=== PATIENT | female | born 1940 | race Asian ===

== ENCOUNTER 2017-12-03 14:00 | Inpatient (IN) | payer MEDICAID, MEDICARE ==
[~2017-12-03] VITALS: Ht 157.5 cm; Wt 64.4 kg
[2017-12-03 14:15] VITALS: Ht 157.5 cm; Wt 64.4 kg
[2017-12-03 15:37] LABS: BASOPHIL % 0.3 % (0-2); PLATELET COUNT 257 x10^3mcL (130-400); RED CELL DISTRIBUTION WIDTH 14.2 % (11.5-14.5)
[2017-12-03 15:49] LABS: ALBUMIN 3.6 g/dL (3.4-5.0); ALKALINE PHOSPHATASE 120 U/L (46-116); ALT/SGPT 22 U/L (14-59); AST/SGOT 19 U/L (15-37); BILIRUBIN TOTAL 0.5 mg/dL (0.20-1.00); CALCIUM 9.5 mg/dL (8.5-10.1); CREATININE SERUM 1.2 mg/dL (0.6-1.0); GLUCOSE SERUM 136 mg/dL (74-106)
[2017-12-03 15:52] LABS: CHOLESTEROL 131 mg/dL (<200); HDL CHOLESTEROL 64 mg/dL (40-60)
[2017-12-03] MEDS ORDERED: LEVEMIR100 U/M1 SC (15:59)
[2017-12-03] MEDS ORDERED: MASON NATURAL1000 IU PO (15:59)
[2017-12-03] MEDS ORDERED: NOVOLOG100 U/ML SC (15:59)
[2017-12-03] MEDS ORDERED: TRULICITY0.75 MG/0. (15:59)
[2017-12-03] MEDS ORDERED: CALCITRIOL0.25 MCG PO (16:00)
[2017-12-03] MEDS ORDERED: CARVEDILOL3.125 M1 (16:00)
[2017-12-03] MEDS ORDERED: GOOD SENSE ASPI81 M3 PO (16:00)
[2017-12-03] MEDS ORDERED: FUROSEMIDE20 MG (16:00)
[2017-12-03] MEDS ORDERED: LOSARTAN POTASS25 M1 (16:00)
[2017-12-03] MEDS ORDERED: ALLOPURINOL100 MG (16:01)
[2017-12-03 16:02] LABS: CARBON DIOXIDE 27.4 mmol/L (21-32); CHLORIDE SERUM 101 mmol/L (98-107); POTASSIUM SERUM 3.7 mmol/L (3.5-5.1)
[2017-12-03 16:25] LABS: microscopic required? YES; urine erythrocyte 1+ (NEGATIVE)
[2017-12-03 16:41] LABS: T3 TOTAL 0.87 ng/mL
[2017-12-03 16:56] LABS: MAGNESIUM 2.1 mg/dL (1.8-2.4); PHOSPHOROUS 3.5 mg/dL (2.5-4.9)
[2017-12-03 17:07] LABS: FREE T4 1.12 ng/dL (0.76-1.46); FREE THYROXINE INDEX 2.4 ug/dL (1.4-4.5); T4(THYROXINE) 6.8 ug/dL (4.7-13.3)
[2017-12-03 17:17] VITALS: BP 213/79
[2017-12-03 17:19] LABS: SODIUM SERUM 137 mmol/L (136-145)
[2017-12-03 17:50] VITALS: BP 187/82
[2017-12-03 19:00] VITALS: BP 193/87
[2017-12-03 19:30] VITALS: BP 180/77
[2017-12-03 21:12] VITALS: BP 179/73
[2017-12-03 22:58] VITALS: BP 148/67
[2017-12-04] VITALS (7 sets, daily range): BP systolic 134–177; BP diastolic 51–69
[2017-12-04 06:26] LABS: CALCIUM 9.4 mg/dL (8.5-10.1); CARBON DIOXIDE 29.9 mmol/L (21-32); CHLORIDE SERUM 103 mmol/L (98-107); CREATININE SERUM 1.4 mg/dL (0.6-1.0); GLUCOSE SERUM 145 mg/dL (74-106); MAGNESIUM 2.2 mg/dL (1.8-2.4); PHOSPHOROUS 4.5 mg/dL (2.5-4.9); POTASSIUM SERUM 4.8 mmol/L (3.5-5.1); SODIUM SERUM 139 mmol/L (136-145)
[2017-12-04 07:44] LABS: BASOPHIL % 0.3 % (0-2); PLATELET COUNT 227 x10^3mcL (130-400)
[2017-12-04 07:45] LABS: RED CELL DISTRIBUTION WIDTH 14.8 % (11.5-14.5)
[2017-12-05] VITALS (9 sets, daily range): BP systolic 151–195; BP diastolic 52–82
[2017-12-05 06:04] LABS: BASOPHIL % 0.5 % (0-2); PLATELET COUNT 190 x10^3mcL (130-400); RED CELL DISTRIBUTION WIDTH 14.2 % (11.5-14.5)
[2017-12-05 06:17] LABS: CALCIUM 8.5 mg/dL (8.5-10.1); CARBON DIOXIDE 26.9 mmol/L (21-32); CHLORIDE SERUM 107 mmol/L (98-107); CREATININE SERUM 1.1 mg/dL (0.6-1.0); GLUCOSE SERUM 175 mg/dL (74-106); MAGNESIUM 1.8 mg/dL (1.8-2.4); PHOSPHOROUS 2.7 mg/dL (2.5-4.9); POTASSIUM SERUM 4.1 mmol/L (3.5-5.1); SODIUM SERUM 137 mmol/L (136-145)
[2017-12-06 06:14] LABS: BASOPHIL % 0.4 % (0-2); PLATELET COUNT 217 x10^3mcL (130-400); RED CELL DISTRIBUTION WIDTH 14.4 % (11.5-14.5)
[2017-12-06 06:24] VITALS: BP 195/68
[2017-12-06 06:25] LABS: CALCIUM 9.6 mg/dL (8.5-10.1); CARBON DIOXIDE 32.2 mmol/L (21-32); CHLORIDE SERUM 106 mmol/L (98-107); CREATININE SERUM 1.1 mg/dL (0.6-1.0); GLUCOSE SERUM 120 mg/dL (74-106); MAGNESIUM 1.9 mg/dL (1.8-2.4); PHOSPHOROUS 2.8 mg/dL (2.5-4.9); POTASSIUM SERUM 4.3 mmol/L (3.5-5.1); SODIUM SERUM 143 mmol/L (136-145)
[2017-12-06 08:51] VITALS: BP 166/57
[2017-12-06 09:40] VITALS: BP 196/76
[2017-12-06 11:13] VITALS: BP 169/56
[2017-12-06 13:41] VITALS: BP 161/55
[2017-12-06] MEDS ORDERED: NOR5 PO (14:51)
[2017-12-06] MEDS ORDERED: CAT0.1 PO (14:51)
[2017-12-06] MEDS ORDERED: CORE25 PO (14:51)
[2017-12-06] MEDS ORDERED: L20 PO (14:52)
[2017-12-06] MEDS ORDERED: COZ50 PO (14:52)
[2017-12-06] MEDS ORDERED: ZOFI PO (14:52)
[2017-12-06] MEDS ORDERED: ZYL100 PO (14:52)
[2017-12-06] MEDS ORDERED: TYL325 PO (15:11)
[2017-12-06] MEDS ORDERED: FLE10 PO (15:11)
[2017-12-06 15:18] VITALS: BP 161/55
== END 2017-12-06 17:13 | disposition home health service (06) | DRG 57 ==
LOC: ED 14:00 → DU 15:53
PROVIDERS: Emergency Medicine; Family Medicine
DX: S06.0X0A Concussion without loss of consciousness, initial encounter (principal); N17.0 Acute kidney failure with tubular necrosis; S00.83XA Contusion of other part of head, initial encounter; K85.90 Acute pancreatitis without necrosis or infection, unspecified; E11.65 Type 2 diabetes mellitus with hyperglycemia; E11.51 Type 2 diabetes mellitus with diabetic peripheral angiopathy without gangrene; I10 Essential (primary) hypertension; R80.9 Proteinuria, unspecified; M10.9 Gout, unspecified; I25.2 Old myocardial infarction; Z79.4 Long term (current) use of insulin; Z95.1 Presence of aortocoronary bypass graft; Z68.24 Body mass index [BMI] 24.0-24.9, adult; Y93.89 Activity, other specified; W18.39XA Other fall on same level, initial encounter; Y93.G3 Activity, cooking and baking; Y92.010 Kitchen of single-family (private) house as the place of occurrence of the external cause
CPT/HCPCS: 83880; 84439; 90715; 92526-GN; 92610-GN; 97110-GP; 97116-GP; 97530-GP; C9113; J1815; J2405; J2550; J3010; J3490; J7030; J8597; Q0092